=== PATIENT | female | born 1990 | race Caucasian/White ===

== ENCOUNTER 2018-08-23 12:47 | Emergency (ER) | payer OTHER ==
[~2018-08-23] VITALS: Ht 152.4 cm; Wt 54.4 kg
--- OUTSIDE RECORDS SUMMARY | ~2018-08-23 | XMS | Clinical Summary ---
Demographics + + + | Address | [address] | | | [place] [address] | + + + | Home Phone | | + + + | Preferred Language | Unknown | + + + | Marital Status | Single | + + + | Druze Affiliation | Unknown | + + + | Race | Unknown | + + + | Ethnic Group | Unknown | + + + Author + + + | Author | [facility] | + + + | Organization | [facility] | + + + | Address | Unknown | + + + | Phone | Unavailable | + + + Support + + + + + | Name | Relationship | Address | Phone | + + + + + | Maame Kaiser | ECON | [address] | | | | | [place] | | | | | [address] | | + + + + + Care Team Providers + +------+ + | Care District Court Judge Name | Role | Phone | + +------+ + | Gato Mena MD | PP | | + +------+ + Allergies Not on File Current Medications Not on file Active Problems Not on file Social History + +-------+ +--------+------+ | Tobacco Use | Types | Packs/Day | Years | Date | | | | | Used | | + +-------+ +--------+------+ | Never Assessed | | | | | + +-------+ +--------+------+ + + + | Sex Assigned at | Date Recorded | | | | + + + | Not on file | | + + + Plan of Treatment Not on file Results Not on filefrom Last 3 Months"
--- OUTSIDE RECORDS SUMMARY | ~2018-08-23 | XMS | Clinical Summary ---
Demographics + + + | Address | [address] | | | [place] [address] | + + + | Home Phone | | + + + | Preferred Language | Unknown | + + + | Marital Status | Single | + + + | Yarsanism Affiliation | Unknown | + + + | Race | Unknown | + + + | Ethnic Group | Unknown | + + + Author + + + | Author | [facility] | | | and [facility] | + + + | Organization | [facility] | | | and [place] | + + + | Address | Unknown | + + + | Phone | Unavailable | + + + Support + + +---------+ + | Name | Relationship | Address | Phone | + + +---------+ + | None,Per Patient | ECON | Unknown | | + + +---------+ + Care Team Providers + +------+ + | Care District Claims Manager Name | Role | Phone | + +------+ + PP | Unavailable | + +------+ + Allergies Not on [...] | + + + Plan of Treatment + + + + + | Health Maintenance | Due Date | Last Done | Comments | + + + + + | Vaccine: | | | | | Dtap/Tdap/Td (1 - | 0 | | | | Tdap) | | | | + + + + + | Cervical Cancer | | | | | Screening (Pap) | 2 | | | + + + + + | Vaccine: Influenza | | | | | (#1) | 8 | | | + + + + + Results Not on filefrom Last 3 Months"
--- OUTSIDE RECORDS SUMMARY | ~2018-08-23 | XMS | Clinical Summary ---
Demographics + + + | Address | [address] | | | [place] [address] | + + + | Home Phone | | + + + | Preferred Language | Unknown | + + + | Marital Status | Single | + + + | Orthodoxy Affiliation | Unknown | + + + | Race | Unknown | + + + | Ethnic Group | Unknown | + + + Author + + + | Author | [facility] | + + + | Organization | [facility] | + + + | Address | Unknown | + + + | Phone | Unavailable | + + + Support + + + + + | Name | Relationship | Address | Phone | + + + + + | Maame Kaiser | ECON | [address] | | | | | [place] | | | | | [address] | | + + + + + Care Team Providers + +------+ + | Care Interactive Marketing Strategist Name | Role | Phone | + [...]
--- OUTSIDE RECORDS SUMMARY | ~2018-08-23 | XMS | Clinical Summary ---
Demographics + + + | Address | [address] | | | [place] [address] | + + + | Home Phone | | + + + | Preferred Language | Unknown | + + + | Marital Status | Single | + + + | Anglican Affiliation | Unknown | + + + | Race | Unknown | + + + | Ethnic Group | Unknown | + + + Author + + + | Author | [facility] | | | and [place] | + + + | Organization | [facility] | | | and [place] | [...] Team Providers + +------+ + | Care Wire Drawer Name | Role | Phone | + [...]
== END 2018-08-23 13:49 | disposition home or self-care (01) ==
LOC: ED 12:47
DX: S61.312A Laceration without foreign body of right middle finger with damage to nail, initial encounter (principal); W22.8XXA Striking against or struck by other objects, initial encounter; F17.200 Nicotine dependence, unspecified, uncomplicated; Z88.0 Allergy status to penicillin
CPT/HCPCS: 73130; 99283

== ENCOUNTER 2023-04-16 12:54 | Emergency (ER) | payer OTHER ==
[~2023-04-16] VITALS: Ht 152.4 cm; Wt 66.2 kg
--- OUTSIDE RECORDS SUMMARY | 2023-04-16 13:01 | XMS ---
PreManage Notification: KATTY CATHERINE Security Curber Events No recent Security Events currently on file CRITERIA MET - [facility] - 2 Visits in 30 Days CARE PROVIDERS -, Carlee- Dentist: Program Manager Transportation [facility] PHONE: [phone] SHIRA BYRNES [facility] Current PHONE: Unknown Tana has no Care Guidelines for this patient. Tay VISIT COUNT (12 MO.) [address] [place] [address] [facility] NOTE: Visits indicate total known visits. ED/UCC VISIT TRACKING (12 MO.) 04/16/2023 12:54 [facility] [place] TYPE: Emergency COMPLAINT: - DETOXING, PG 04/15/2023 23:49 [facility] [place] TYPE: Emergency COMPLAINT: - MEDICAL CLEARANCE 11/27/2022 20:48 [facility] [place] TYPE: Emergency DIAGNOSES: - Encounter for supervision of normal , unspecified, unspecified trimester - Poisoning by unspecified narcotics, accidental (unintentional), initial encounter - OVERDOSE 11/21/2022 15:01 [facility] [place] TYPE: Emergency DIAGNOSES: - Headache, unspecified - MIGRAINE VOMITING NAUSEA 08/19/2022 18:[facility] TYPE: Emergency COMPLAINT: - left ear pain for 3 days DIAGNOSES: - Otalgia, left ear - Earache - left ear pain for 3 days 06/22/2022 23:16 [facility] [place] TYPE: Emergency DIAGNOSES: - Epigastric pain - Gastro-esophageal reflux disease without esophagitis - ABD PAIN INPATIENT VISIT TRACKING (12 MO.) No inpatient visits to display in this time frame [email or web address]
[2023-04-16] MEDS ORDERED: ONDANSETRON ODT4 MG PO (14:07)
[2023-04-16] MEDS ORDERED: VISTARIL25 MG PO (14:07)
[2023-04-16 14:19] VITALS: BP 115/77
== END 2023-04-16 14:21 | disposition home or self-care (01) ==
LOC: ED 12:54
DX: O99.323 Drug use complicating pregnancy, third trimester (principal); F19.10 Other psychoactive substance abuse, uncomplicated; O99.333 Smoking (tobacco) complicating pregnancy, third trimester; F17.200 Nicotine dependence, unspecified, uncomplicated; Z3A.31 31 weeks gestation of pregnancy; Z88.0 Allergy status to penicillin; Z88.8 Allergy status to other drugs, medicaments and biological substances
CPT/HCPCS: A9270